=== PATIENT | female | born 1995 | race Caucasian/White ===

== ENCOUNTER 2019-02-16 08:10 | Emergency (ER) | payer OTHER, SELFPAY ==
[2019-02-16 08:11] VITALS: BP 128/82; PULSE 89; RESP 16; TEMP 36.3; O2SAT 99; BMI 33.8
--- NOTE | 2019-02-16 08:36 | ED.DCSUM_ITS ---
- ER Visit Summary Date of Service: 02/16/19 Chief Complaint: Seizure History of Present Illness: The patient is a 24 F has been diagnosed with partial complex seizures. She was diagnosed at 19 years old. She had limited seizures since that time as long as she takes her normal medications. Mom states that she gets emotionally upset when these occur and the patient starts crying sometimes. He states she has been doing well. Yesterday she had a virtual appointment with her physician preschool assistant teacher out of the [facility] and everything is been going well. Last evening they believe she may have had seizures. She does not have tonic-clonic activity. She has had no falls or trauma. No fever. Physical Examination: Female no acute distress. Mom at bedside. Vitals are stable and afebrile. Patient is crying. But she is awake and alert. HEENT exam atraumatic. Pupils round reactive light. No facial droop. Normal speech. Neck nontender. Lungs clear to auscultation bilaterally. Heart regular rhythm no murmur. Abdomen is soft and nontender. Patient moving all 4 extremities. Neurologically patient is awake alert. With no focal motor deficits. Test Results: None Emergency Department Course and Treatment: Patient was given p.o. dose of Valium to help with her anxiety. Can follow-up outpatient with her neurologist. Repeat exam at 1452 patient is doing well. No longer seizing. Symptoms are responded well to both the Valium and the IV Ativan. Mom is comfortable with her being discharged home and will follow up with her [facility] neurologist. Treatment Plan: Follow-up. Continue current medications. Disposition: Discharge Impression: Acute anxiety History of partial complex seizure with recurrent seizures This note was generated with [employer] dictation software. It may contain incorrect words, spelling, and punctuation that were not noted in review of the chart prior to signing ED Disposition - Plan for ED Patient: Disposition: Home or Assisted Living Instructions: SEIZURE, Recurrent [Adult] Referrals: Vaibhav Villareal, [Primary Care Provider] - As Needed Additional Instructions: Continue current medications. Follow-up with your neurologist at the clinic.
--- NOTE | 2019-02-16 08:40 | ED.DEP ---
ED Disposition - Plan for ED Patient: Disposition: Home or Assisted Living Instructions: SEIZURE, Recurrent [Adult] Prescriptions: Lorazepam [Ativan] 1 mg PO BID PRN PRN #14 tab PRN Reason: Seizure Prescription Printed Referrals: Vaibhav Villareal DO [Primary Care Provider] - As Needed Additional Instructions: Continue current medications. Follow-up with your neurologist at the clinic.
[2019-02-16] MEDS: diazePAM 5 MG Tablet PO (10:06)
[2019-02-16 10:07] VITALS: BP 134/77; PULSE 67; RESP 15; O2SAT 98
[2019-02-16] MEDS: LORazepam 2 MG/ML Syringe 1 MG IV (11:33)
[2019-02-16 11:36] VITALS: BP 118/83; PULSE 69; RESP 15; O2SAT 99
[2019-02-16 11:36] LABS: Absolute Lymphocyte Count 2.33 X10^3/ul (0.83-4.51); Absolute Neutrophil Count 5.2 X10^3/uL (2.0-7.7); Basophil# 0.03 X10^3/uL; Basophil% 0.4 % (0-1); Eosinophil# 0.06 X10^3/uL; Eosinophils% 0.7 % (0-5); Hematocrit 43.5 % (37-47); Hemoglobin 14.3 g/dl (12.0-15.0); Lymphocyte # 2.33 X10^3/ul (4.0); Lymphocyte % 28.3 % (19-41); Mean Corp Hgb Conc 32.9 g/gl (32-36); Mean Corpuscular Hgb 28.3 pg (27.0-32.0); Mean Corpuscular Volume 86.1 fL (81-99); Mean Platelet Vol. 9.1 fl (6.2-12.0); Monocyte# 0.59 X10^3/uL; Monocyte% 7.2 % (0-10); Neutrophil # 5.21 X10^3/uL (2.7-7.7); Neutrophil % 63.2 % (47-70); Platelet Count 474 K/mm3 (150-450); RBC Distribution Width CV 12.9 % (11.6-14.6); RBC Distribution Width SD 40.1 fl (35.1-43.9); Red Blood Count 5.05 M/mm3 (4.2-5.4); White Blood Count 8.2 K/mm3 (4.4-11.0)
[2019-02-16 11:39] LABS: POSITIVE COUNT NO; POSITIVE DIFFERENTIAL NO; POSITIVE MORPHOLOGY NO
[2019-02-16 11:52] LABS: Anion Gap 7 (5-15); BUN 13 mg/dL (7-18); BUN/Creat Ratio 17.8 RATIO (10-20); Calcium,Total 8.9 mg/dL (8.5-10.1); Chloride 108 mmol/L (98-107); Creatinine, Serum 0.73 mg/dL (0.55-1.02); EST Glomerular Filtration Rate 106 mL/min (>60); Est Glom Filt Rate - Afr Amer 128 mL/min (>60); Estimated Creatinine Clearance 95.61 ml/min; Glucose 74 mg/dL (74-106); Sodium Level 136 mmol/L (136-145)
[2019-02-16 13:00] VITALS: BP 109/74; PULSE 88; RESP 16; O2SAT 96
[2019-02-16] MEDS: levETIRAcetam 1,000 MG Tablet 1500 MG PO (14:03)
[2019-02-16] MEDS: Topiramate 50 MG Tablet PO (14:03)
[2019-02-16 15:00] VITALS: BP 115/75; PULSE 95; RESP 16; O2SAT 97
[2019-02-16 15:03] VITALS: BP 115/75; PULSE 95; RESP 16; O2SAT 97
== END 2019-02-16 15:06 | disposition home or self-care (01) ==
PROVIDERS: Emergency Provider Emergency Medicine; Family Provider Student in an Organized Health Care Education/Training Program; PCP Student in an Organized Health Care Education/Training Program
DX: G40.209 Localization-related (focal) (partial) symptomatic epilepsy and epileptic syndromes with complex partial seizures, not intractable, without status epilepticus (principal); F41.9 Anxiety disorder, unspecified; Z79.899 Other long term (current) drug therapy
CPT/HCPCS: 80048; 85025; 96374; 99284; A4216

== ENCOUNTER → 2020-07-05 | Outpatient (CLI) | payer OTHER, MEDICAID, SELFPAY ==
[2020-07-05 09:10] VITALS: BMI 37.0
[2020-07-10 12:57] LABS: HPV Reflexed? NOT INDICATED
== END | disposition home or self-care (01) ==
LOC: LABSPEC 12:54
PROVIDERS: PCP Student in an Organized Health Care Education/Training Program; Referring Provider Nurse Practitioner Women's Health; Visit Provider Nurse Practitioner Women's Health
DX: Z12.4 Encounter for screening for malignant neoplasm of cervix (principal)
CPT/HCPCS: 88175; G0145

== ENCOUNTER → 2022-09-30 | Outpatient (CLI) | payer OTHER, SELFPAY ==
[2022-10-08 23:16] LABS: HPV Reflexed? NOT INDICATED
== END | disposition home or self-care (01) ==
LOC: LABSPEC 13:08
PROVIDERS: PCP Student in an Organized Health Care Education/Training Program; Visit Provider Registered Nurse
DX: Z12.4 Encounter for screening for malignant neoplasm of cervix (principal)
CPT/HCPCS: 88175; G0145

== ENCOUNTER 2023-04-22 14:29 | Emergency (ER) | payer MEDICARE, MEDICAID, SELFPAY ==
[2023-04-22 14:31] VITALS: BP 137/102; PULSE 138; RESP 36; TEMP 36.2; O2SAT 96; BMI 21.0
[2023-04-22 14:35] VITALS: PULSE 140
--- NOTE | 2023-04-22 14:44 | EKG12_ITS ---
Test Reason : Blood Pressure : / mmHG Vent. Rate : 129 BPM Atrial Rate : 129 BPM P-R Int : 138 ms QRS Dur : 072 ms QT Int : 296 ms P-R-T Axes : 031 020 014 degrees QTc Int : 433 ms Sinus tachycardia Possible Left atrial enlargement Borderline ECG Confirmed by DEVEN MORALES ([id number]), department editor JEFF GALVAN ([id number]) on 05/08/2023 10:37:14 AM Referred By: TARAS/NATASHA/PL Confirmed By:DEVEN MORALES
--- NOTE | 2023-04-22 14:45 | EX.ED.DYSGE1 ---
HPI <Dr. Bakari Duong MD - Last Filed: 04/22/23 16:08> History of Present Illness Chief Complaint: Seizure Detail of Chief Complaint: 2 generalized tonic-clonic seizures since approximately noon Informant: parent (Mother and father) Limited: other (Postictal) Onset/Context/Timing Onset: Today Context: Sudden Onset Timing: Intermittent Quality: Generalized tonic-clonic Location: Home Current Severity: Mild Maximum Severity: Severe Worsened by: Reported noncompliance with medication Relieved by: Stopped on its own Associated Symptoms Associated Symptoms: Bit tongue, confusion Narrative Narrative: Patient is a 28-year-old girl. She has history of seizures. She has not had a generalized tonic-clonic seizure in 8-/2 years. She does have occasional focal seizures. She is on valproic acid. Apparently she is not taking her valproic acid last evening or this morning. Presently she denies headache. Presently she denies trouble with her vision. She denies ringing or ears or decreased hearing. She denies recent respiratory symptoms. Mother confirmed. She denies chest pain or shortness of breath. She denies nausea. She denies urologic symptoms. Prior similar symptoms: Yes Recent Illness/Hospitalization: No PFSH <Dr. Bakari Duong MD - Last Filed: 04/22/23 16:08> PFSH Medical History Anxiety Depression Epilepsy Home Medications cholecalciferol (vitamin D3) 25 mcg (1,000 unit) chewable tablet 1,000 unit PO BID 02/16/19 [History Last Taken 02/15/19] lorazepam 1 mg tablet 1 mg PO BID PRN PRN Seizure #14 tabs 02/16/19 [Rx Last Taken Unknown] topiramate 50 mg tablet 50 mg PO BID 02/16/19 [History Last Taken 02/15/19] levetiracetam 1,000 mg tablet 1,500 mg PO BID 03/30/19 [History Last Taken Unknown] norgestimate 0.25 mg-ethinyl estradiol 35 mcg tablet (Estarylla) See Rx Instructions .Route .COMPLEX #84 tabs 02/24/23 [Rx Last Taken Unknown] Allergy/AdvReac Type Severity Reaction Status Date / Time No Known Allergies Allergy Verified 09/30/22 11:03 Family History Grandfather Cancer History of high cholesterol Hypertension Father Thyroid disorder Grandmother Thyroid disorder Hypertension monocolanopathy pre diabetic Mother Hypertension Kidney stones, calcium oxalate Heart disease History of high cholesterol Social History adopted: No household members: family current occupational status: employed current occupation: [employer] sexually active: No Smoking Status: Never smoker second hand exposure: No alcohol intake: never substance use type: does not use caffeine: Yes Type: coffee eating out: rarely or never what type of physical activity do you participate in: walking and weight training seatbelt use: always do you feel safe at home: Yes ROS <Dr. Bakari Duong MD - Last Filed: 04/22/23 16:08> ROS ED Constitutional Constitutional ED: Denies chills, fever(s), subjective or sweats Eyes Eyes: Denies blurry vision, change in vision or diplopia ENT ENT ED: Denies ear pain, rhinorrhea or sore throat Cardiovascular Cardiovascular: Denies chest pain or palpitations Respiratory/Chest Respiratory/Chest: Denies cough, dyspnea or dyspnea on exertion Gastrointestinal Gastrointestinal: Denies abdominal pain, nausea or vomiting Genitourinary Genitourinary ED: Denies dysuria, hematuria or urinary frequency Musculoskeletal Musculoskeletal: Denies back pain or neck pain Integumentary Denies rash Neurologic Neurologic: Denies headache(s) Hematologic/Lymphatic Hematologic/Lymphatic: Reports systems reviewed and no addt'l complaints, except as documented EXAM <Dr. Bakari Duong MD - Last Filed: 04/22/23 16:08> Physical Exam Const Vital Signs: 04/22/23 14:31 04/22/23 14:35 Temperature 97.2 F L Temperature Source Temporal Pulse Rate 138 H 140 H Respiratory Rate 36 H Blood Pressure 137/102 H Blood Pressure Mean 113 Pulse Ox 96 Oxygen Delivery Method Room Air Positive well nourished, well developed and obese Constitutional Narrative: Patient is slightly confused. She is disoriented to time. General Appearance ED: well developed and NAD; Negative for pallor Nutritional Appearance: obese HEENT Reports moist mucous membranes HEENT Narrative: Head is atraumatic and normocephalic. Ears are normal. TMs are normal. Nares patent. No evidence of epistaxis. Posterior pharynx is normal. There is no deviation of the tongue with protrusion. Eyes PERRL and EOMs intact bilaterally General Eye ED: Negative for pale conjunctiva or scleral icterus Neck no lymphadenopathy, supple and no JVD Chest Wall inspection of chest normal and palpation of chest normal Resp normal respiratory effort and clear to auscultation bilaterally Resp Narrative: Respiratory rate is noted to be 36. Cardio regular rhythm, S1 normal heart sound, S2 normal heart sound and no murmurs Rate: tachycardic GI normal to inspection, nondistended, normoactive bowel sounds, non-tender, non-distended and no masses; Negative for hepatosplenomegaly Auscultation: normoactive bowel sounds Palpation: soft Extremity normal to inspection General Extremety ED: Negative for edema or tenderness General Extremity: Negative for edema Neuro No oriented x3, CN's II-XII intact bilaterally and no sensory deficits noted Neuro Narrative: Patient is awake but not necessary really alert. Patient has bilateral Babinski sign. There is no clonus. Patella, ankle, bicep and brachialis deep tendon reflexes 1+ and symmetric. There is no dysmetria. Motor Exam: strength 5/5 throughout Psych Psych Narrative: Patient is still confused due to postictal state. Skin no rashes or lesions noted, no wounds and skin turgor normal General Skin Exam: Negative for jaundice or pallor <Dr. Abhijeet Nicholson DO - Last Filed: 04/22/23 16:53> Physical Exam Const Vital Signs: 04/22/23 14:31 04/22/23 14:35 Temperature 97.2 F L Temperature Source Temporal Pulse Rate 138 H 140 H Respiratory Rate 36 H Blood Pressure 137/102 H Blood Pressure Mean 113 Pulse Ox 96 Oxygen Delivery Method Room Air [facility] <Dr. Bakari Duong MD - Last Filed: 04/22/23 16:08> [facility] Narrative Medical decision making narrative: SPECT patient had generalized tonic-clonic seizure due to noncompliance. This would not explain her sinus tachycardia in the monitor of 133. Will obtain EKG to determine if there is any changes to suggest preexcitation syndrome i.e. WPW, [place] syndrome etc. We will obtained anticonvulsant level as well. History & Record Review Additional record(s) reviewed:: Prior ED visit (Patient had ER visit in 2019 for seizure and was seen 2014 for ADHD hyperactivity.) and Prior labs Lab Data Attestation: I reviewed the patient's lab results. Lab results narrative: White count is elevated 20.7 thousand. This in all likelihood is due to her seizure. Labs: Laboratory Results - last 24 hr 04/22/23 04/22/23 15:10 16:18 WBC 20.7 H RBC 5.06 Hgb 14.4 Hct 45.9 MCV 90.7 MCH 28.5 MCHC 31.4 L RDW Std Deviation 42.8 RDW Coeff of Kim 13.0 Plt Count 432 MPV 9.4 Sodium 136 Potassium 4.3 Chloride 105 Carbon Dioxide 18.0 L Anion Gap 13 BUN 9 Creatinine 0.94 Estim Creat Clear Calc 71.73 Est GFR (MDRD) Af Amer 93 Est GFR (MDRD) Non-Af 77 BUN/Creatinine Ratio 9.6 L Glucose 98 Calcium 9.3 Urine Color Yellow Urine Clarity Clear Urine pH 5.0 Ur Specific [place] 1.030 Urine Protein 30 H Urine Glucose (UA) Normal Urine Ketones 15 H Urine Occult Blood 25 H Urine Nitrite Negative Urine Bilirubin Negative Urine Urobilinogen Normal Ur Leukocyte Esterase Negative Urine RBC 0 SEEN Urine WBC 0 SEEN Ur Squamous Epith Cells 0 SEEN Urine Bacteria 0 SEEN Urine Mucus 0 SEEN Urine Opiates Screen NEGATIVE Urine Methadone Screen NEGATIVE Ur Barbiturates Screen NEGATIVE Valproic Acid < 3 L Ur Phencyclidine Scrn NEGATIVE Ur Amphetamines Screen NEGATIVE MDMA (Ecstasy) Screen NEGATIVE U Benzodiazepines Scrn NEGATIVE Urine Cocaine Screen NEGATIVE U Cannabinoids Screen NEGATIVE Ur Drug Screen Comment Rhythm Strip Rhythm Strip: Sinus Tach Rate: 136 Ectopy: None EKG Initial EKG: Attestation: I personally reviewed and interpreted this EKG as follows: Interpretation: Sinus Tachycardia (Rate is 129. CA interval is 128 ms. QRS duration 72 ms. QT duration 396 ms. [place] is normal. There is no acute ischemic changes.) <Dr. Abhijeet Nicholson, DO - Last Filed: 04/22/23 16:53> [facility] Lab Data Labs: Laboratory Results - last 24 hr 04/22/23 04/22/23 15:10 16:18 WBC 20.7 H RBC 5.06 Hgb 14.4 Hct 45.9 MCV 90.7 MCH 28.5 MCHC 31.4 L RDW Std Deviation 42.8 RDW Coeff of Kim 13.0 Plt Count 432 MPV 9.4 Sodium 136 Potassium 4.3 Chloride 105 Carbon Dioxide 18.0 L Anion Gap 13 BUN 9 Creatinine 0.94 Estim Creat Clear Calc 71.73 Est GFR (MDRD) Af Amer 93 Est GFR (MDRD) Non-Af 77 BUN/Creatinine Ratio 9.6 L Glucose 98 Calcium 9.3 Urine Color Yellow Urine Clarity Clear Urine pH 5.0 Ur Specific [place] 1.030 Urine Protein 30 H Urine Glucose (UA) Normal Urine Ketones 15 H Urine Occult Blood 25 H Urine Nitrite Negative Urine Bilirubin Negative Urine Urobilinogen Normal Ur Leukocyte Esterase Negative Urine RBC 0 SEEN Urine WBC 0 SEEN Ur Squamous Epith Cells 0 SEEN Urine Bacteria 0 SEEN Urine Mucus 0 SEEN Urine Opiates Screen NEGATIVE Urine Methadone Screen NEGATIVE Ur Barbiturates Screen NEGATIVE Valproic Acid < 3 L Ur Phencyclidine Scrn NEGATIVE Ur Amphetamines Screen NEGATIVE MDMA (Ecstasy) Screen NEGATIVE U Benzodiazepines Scrn NEGATIVE Urine Cocaine Screen NEGATIVE U Cannabinoids Screen NEGATIVE Ur Drug Screen Comment Treatment and Re-Evaluation Comments:: Patient was reassigned to vt pending toxicology evaluation. This was negative. Patient is at neurologic baseline. We will proceed with Dr. Duong's plan of discharge Discharge Plan Triage Chief Complaint: Seizure ED Provider: Abhijeet Nicholson Dx/Rx/DC Orders Clinical Impression: Generalized tonic-clonic seizure, Noncompliance with medications, Sinus tachycardia seen on device engineer Instructions: ED Seizure, Recurrent (Adult) Prescriptions: No Action topiramate 50 tablet 50 mg PO BID cholecalciferol (vitamin D3) 1,000 UNIT tablet,chewable 1,000 unit PO BID lorazepam 1 MG tablet 1 mg PO BID PRN PRN (Reason: Seizure) Qty: 14 0RF levetiracetam 1,000 mg tablet 1,500 mg PO BID norgestimate-ethinyl estradiol [Estarylla] 0.25-35 mg-mcg tablet See Rx Instructions .ROUTE .COMPLEX Qty: 84 2RF Dose Instruction: TAKE 1 TABLET DAILY Rx Instructions: TAKE 1 TABLET DAILY Primary Care Provider: Vaibhav Villareal Referrals: Vaibhav Villareal [facility] [[facility]] - 5-7 Days Activity Restrictions/Additional Instructions: No driving, use of machinery, going up or down ladders, swim swimming in a pool or pond, you should not take a bath unsupervised. Disposition Disposition: Home, Self Care
[2023-04-22 15:20] LABS: Hematocrit 45.9 % (37-47); Hemoglobin 14.4 g/dL (12.0-15.0); Mean Corp Hgb Conc 31.4 g/dL (32-36); Mean Corpuscular Hgb 28.5 pg (27.0-32.0); Mean Corpuscular Volume 90.7 fL (81-99); Mean Platelet Vol. 9.4 fl (6.2-12.0); Platelet Count 432 K/mm3 (150-450); RBC Distribution Width SD 42.8 fl (35.1-43.9); Red Blood Count 5.06 M/mm3 (4.2-5.4); White Blood Count 20.7 K/mm3 (4.4-11.0)
[2023-04-22 15:30] VITALS: BP 133/83; PULSE 109; RESP 17; O2SAT 97
[2023-04-22 15:35] LABS: Anion Gap 13 (5-15); BUN 9 mg/dL (7-18); BUN/Creat Ratio 9.6 RATIO (10-20); Calcium,Total 9.3 mg/dL (8.5-10.1); Chloride 105 mmol/L (98-107); Creatinine, Serum 0.94 mg/dL (0.55-1.02); EST Glomerular Filtration Rate 77 mL/min (>60); Est Glom Filt Rate - Afr Amer 93 mL/min (>60); Estimated Creatinine Clearance 71.73 ml/min; Glucose 98 mg/dL (74-106); Potassium 4.3 mmol/L (3.5-5.1); Sodium Level 136 mmol/L (136-145)
[2023-04-22 15:51] LABS: Valproic Acid (Depakene) Level < 3 ug/mL (50-100)
[2023-04-22 16:24] LABS: Bacteria 0 SEEN /hpf (None Seen); Mucous, Urine 0 SEEN /hpf (<or=2+); Red Blood Cells-Urine 0 SEEN /hpf (0-5); Squamous Epithelial Cells - UA 0 SEEN /hpf (5-10); White Blood Cells 0 SEEN /hpf (0-5)
[2023-04-22 16:26] LABS: Color, Urine Yellow (Yellow); Glucose, Dipstick Normal (Normal); Ketone-Dipstick 15 mg/dl (Negative); Leukocyte Esterase-Dipstick Negative /ul (Negative); Nitrite-Dipstick Negative (Negative); Occult Blood-Urine 25 /ul (Negative); Protein-Dipstick 30 mg/dl (Negative); Urine Bilirubin Dipstick Negative (Negative); Urine Clarity Clear (Clear); Urine Urobilinogen Normal (Normal)
[2023-04-22 16:44] LABS: Amphetamine Urine VISTA NEGATIVE (<1000 ng/mL); Barbiturate Urine VISTA NEGATIVE (< 200 ng/mL); Benzodiazepine Urine VISTA NEGATIVE (< 200 ng/mL); Cocaine Urine VISTA NEGATIVE (< 300 ng/mL); Ecstacy Urine VISTA NEGATIVE (< 500 ng/mL); Methadone Urine VISTA NEGATIVE (< 300 ng/mL); PCP Urine VISTA NEGATIVE (< 25 ng/mL); THC Urine VISTA NEGATIVE (< 50 ng/mL); Vista UDS pH Range 5
[2023-04-22 17:05] VITALS: BP 127/78; PULSE 102; RESP 18; O2SAT 96
== END 2023-04-22 17:08 | disposition home or self-care (01) ==
PROVIDERS: Emergency Medicine; Emergency Provider Emergency Medicine; PCP Student in an Organized Health Care Education/Training Program; Visit Provider Emergency Medicine
DX: G40.409 Other generalized epilepsy and epileptic syndromes, not intractable, without status epilepticus (principal); R00.0 Tachycardia, unspecified; E66.9 Obesity, unspecified; Z91.148 Patient's other noncompliance with medication regimen for other reason
CPT/HCPCS: 80048; 80164; 80307; 81001; 85027; 93005; 99285; P9612; A4216

== ENCOUNTER 2025-04-26 15:22 | Outpatient (RCR) | payer MEDICARE, MEDICAID, SELFPAY | END 2025-05-24 23:59 | LOC: NS 15:22 | PROVIDERS: PCP Student in an Organized Health Care Education/Training Program; Referring Provider Student in an Organized Health Care Education/Training Program; Visit Provider Student in an Organized Health Care Education/Training Program | DX: Z71.3 Dietary counseling and surveillance (principal); E66.01 Morbid (severe) obesity due to excess calories; E78.00 Pure hypercholesterolemia, unspecified; G40.909 Epilepsy, unspecified, not intractable, without status epilepticus; F90.9 Attention-deficit hyperactivity disorder, unspecified type | CPT/HCPCS: 97802 ==